=== PATIENT | male | born 1990 | race Caucasian/White ===

== ENCOUNTER 2016-10-20 13:45 | Emergency (ER) | payer OTHER ==
[~2016-10-20] VITALS: Ht 188 cm; Wt 65.8 kg
[2016-10-20 14:00] VITALS: BP 161/95
--- NOTE | 2016-10-20 14:10 | NUR ---
Patient ambulated to bed 7. RN evaluating patient at bedside.
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
[2016-10-20] MEDS ORDERED: HYDROcodone/APAP 7.5/325 MG 1 TAB PO ONE (14:25)
[2016-10-20 16:14] VITALS: BP 144/91
--- NOTE | 2016-10-20 16:15 | NUR ---
Patient discharged with v/s stable. Written and verbal after care instructions given and explained. Patient alert, oriented and verbalized understanding of instructions. Ambulatory with steady gait. All questions addressed prior to discharge. ID band removed. Patient advised to follow up with PMD. Rx of NORCO, MOTRIN, CLINDAMYCIN given. Patient educated on indication of medication including possible reaction and side effects. Opportunity to ask questions provided and answered.
== END 2016-10-20 16:15 | disposition home or self-care (01) ==
LOC: MED 13:45 → EDBD 13:45 → MED 16:15
DX: S02.609A Fracture of mandible, unspecified, initial encounter for closed fracture (principal); R03.0 Elevated blood-pressure reading, without diagnosis of hypertension; Y04.2XXA Assault by strike against or bumped into by another person, initial encounter; Y93.89 Activity, other specified; Y92.149 Unspecified place in prison as the place of occurrence of the external cause; Y99.8 Other external cause status

== ENCOUNTER 2017-03-08 14:32 | Emergency (ER) | payer OTHER ==
[~2017-03-08] VITALS: Ht 182.9 cm; Wt 60.4 kg
[2017-03-08 14:39] VITALS: BP 137/83
--- NOTE | 2017-03-08 15:27 | NUR ---
Dr. Nguyễn evaluating patient as fast track in [place].
[2017-03-08 16:48] VITALS: BP 137/83
--- NOTE | 2017-03-08 16:48 | NUR ---
Patient discharged with v/s stable. Written and verbal after care instructions given and explained. Patient alert, oriented and verbalized understanding of instructions. Ambulatory with steady gait. All questions addressed prior to discharge. ID band removed. Patient advised to follow up with PMD. Rx of MOTRIN 800 MG PO TID given. Patient educated on indication of medication including possible reaction and side effects. Opportunity to ask questions provided and answered.
== END 2017-03-08 15:35 | disposition home or self-care (01) ==
LOC: MED 14:32
DX: S66.812A Strain of other specified muscles, fascia and tendons at wrist and hand level, left hand, initial encounter (principal); X58.XXXA Exposure to other specified factors, initial encounter; Y93.89 Activity, other specified; Y92.89 Other specified places as the place of occurrence of the external cause; Y99.8 Other external cause status
CPT/HCPCS: 73110; 99284

== ENCOUNTER 2020-08-01 11:37 | Emergency (ER) | payer OTHER ==
[~2020-08-01] VITALS: Ht 188 cm; Wt 65.8 kg
[2020-08-01 11:45] VITALS: BP 109/68
--- NOTE | 2020-08-01 11:48 | NUR ---
Patient wheelchair assisted to lobby.
--- NOTE | 2020-08-01 12:42 | NUR ---
Patient taken to xray via wheelchair
--- NOTE | 2020-08-01 13:10 | NUR ---
Dr. Pimentel evaluating the pt at bedside.
[2020-08-01] MEDS ORDERED: MORPHINE SULFATE 4 MG/ML SYR IVP ONE (13:15)
[2020-08-01] MEDS ORDERED: KETOROLAC 30 MG/ML VIAL IVP ONE (13:15)
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
[2020-08-01] MEDS ORDERED: KETOROLAC 30 MG/ML VIAL IM ONE (13:25)
[2020-08-01] MEDS ORDERED: MORPHINE SULFATE 4 MG/ML SYR IM ONE (13:25)
[2020-08-01 14:38] VITALS: BP 109/68
--- NOTE | 2020-08-01 14:38 | NUR ---
Patient discharged with v/s stable. Written and verbal after care instructions given and explained. Patient alert, oriented and verbalized understanding of instructions. Ambulatory with steady gait with crutches. All questions addressed prior to discharge. ID band removed. Patient advised to follow up with PMD. Rx of naprosyn 500mg tab BID PRN pain, and norco 5mg-325mg 1 tab q6h PRN pain given. Patient educated on indication of medication including possible reaction and side effects. Opportunity to ask questions provided and answered.
== END 2020-08-01 14:38 | disposition home or self-care (01) ==
LOC: MED 11:37
DX: S82.301A Unspecified fracture of lower end of right tibia, initial encounter for closed fracture (principal); S82.831A Other fracture of upper and lower end of right fibula, initial encounter for closed fracture; W20.8XXA Other cause of strike by thrown, projected or falling object, initial encounter; Y93.89 Activity, other specified; Y92.89 Other specified places as the place of occurrence of the external cause; Y99.8 Other external cause status
CPT/HCPCS: 29515; 73590; 73610; 96372; 99284; J1885; J2270

== ENCOUNTER 2023-06-30 19:54 | Emergency (ER) | payer SELFPAY ==
[~2023-06-30] VITALS: Ht 188 cm; Wt 65.8 kg
[2023-06-30 20:19] VITALS: BP 101/59
== END 2023-06-30 22:25 | disposition left against medical advice (07) ==
LOC: MED 19:54
DX: S82.65XA Nondisplaced fracture of lateral malleolus of left fibula, initial encounter for closed fracture (principal); R31.9 Hematuria, unspecified; R30.0 Dysuria; W18.39XA Other fall on same level, initial encounter; Y93.39 Activity, other involving climbing, rappelling and jumping off; Y92.89 Other specified places as the place of occurrence of the external cause; Y99.8 Other external cause status
CPT/HCPCS: 29515; 73610; 99283